=== PATIENT | female | born 1940 | race Two or more races ===

== ENCOUNTER 2020-11-12 02:33 | Emergency (ER) | payer OTHER ==
[~2020-11-12] VITALS: Ht 154.9 cm; Wt 49.9 kg
[2020-11-12] MEDS ORDERED: REPAGLINIDE2 MG (02:55)
[2020-11-12] MEDS ORDERED: NAMENDA XR28 MG (02:58)
[2020-11-12] MEDS ORDERED: PLAVIX75 MG (02:59)
[2020-11-12] MEDS ORDERED: LIPITOR20 MG (02:59)
[2020-11-12] MEDS ORDERED: ZESTRIL5 MG (02:59)
[2020-11-12] MEDS ORDERED: BONIVA150 MG (03:00)
[2020-11-12] MEDS ORDERED: CAMBIA50 MG (03:01)
== END 2020-11-12 03:35 | disposition home or self-care (01) ==
LOC: ER 02:33
DX: G89.11 Acute pain due to trauma (principal); R07.89 Other chest pain